=== PATIENT | female | born 1955 | race Caucasian/White ===

== ENCOUNTER 2016-12-25 03:24 | Emergency (ER) | payer OTHER ==
[~2016-12-25] VITALS: Ht 162.5 cm; Wt 59.0 kg
[~2016-12-25 03:24] MED LIST: LEXAPRO20 MG PO; PREMPRO 0.3 MG-1 TA1 PO; SYNTHROID,LEV100 MCG PO; TOPAMAX100 MG PO; VITAMIN D50000 I2 PO; WELLBUTRIN75 MG PO
[2016-12-25 03:52] LABS: BILIRUBIN 1+ (NEGATIVE); BLOOD 3+ (NEGATIVE); CLARITY CLOUDY (CLEAR); COLOR YELLOW (YELLOW); GLUCOSE NEGATIVE (NEGATIVE); KETONE NEGATIVE (NEGATIVE); LEUKO ESTERASE 2+ (NEGATIVE); NITRITE NEGATIVE (NEGATIVE); PH 6.5 (5.0-9.0); PROTEIN 2+ (NEGATIVE); UROBILINOGEN 0.2 E.U./dl (0.2-1.0)
[2016-12-25 03:59] LABS: BACTERIA 1+; URINE REFLEX COMMENT YES (NO); WBC TNTC wbc/hpf (0-5)
[2016-12-25] MEDS ORDERED: CEPHALEXIN500 M1 PO (04:06)
[2016-12-25] MEDS ORDERED: PYRIDIUM200 M1 PO (04:06)
== END 2016-12-25 05:04 | disposition home or self-care (01) ==
LOC: ED 03:24
PROVIDERS: Emergency Medicine
DX: N39.0 Urinary tract infection, site not specified (principal)

== ENCOUNTER 2017-02-01 12:40 | Emergency (ER) | payer OTHER ==
[~2017-02-01] VITALS: Wt 61.2 kg
[~2017-02-01 12:40] MED LIST changes: +CEPHALEXIN500 M1 PO; +PYRIDIUM200 M1 PO
[2017-02-01] MEDS ORDERED: LORAZEPAM1 MG PO (12:42)
[2017-02-01] MEDS ORDERED: SYNTHROID RP0.088 MG PO (12:42)
[2017-02-01] MEDS ORDERED: BUDEPRION XL150 MG PO (12:42)
[2017-02-01] MEDS ORDERED: B121000 MCG/1 IM (12:43)
[2017-02-01 13:06] LABS: BILIRUBIN 2+ (NEGATIVE); BLOOD 3+ (NEGATIVE); CLARITY TURBID (CLEAR); COLOR YELLOW (YELLOW); GLUCOSE NEGATIVE (NEGATIVE); KETONE TRACE (NEGATIVE); NITRITE POSITIVE (NEGATIVE); PROTEIN 3+ (NEGATIVE)
[2017-02-01 13:27] LABS: LEUKO ESTERASE 3+ (NEGATIVE); URINE REFLEX COMMENT YES (NO)
[2017-02-01 13:30] LABS: BACTERIA 2+; RBC TNTC rbc/hpf (0-2); WBC TNTC wbc/hpf (0-5)
[2017-02-01] MEDS ORDERED: MACROBID100 M1 PO (13:40)
[2017-02-01] MEDS ORDERED: PYRIDIUM200 M1 PO (13:40)
[2017-02-01] MEDS ORDERED: ZOFRAN4 MG PO (13:53)
== END 2017-02-01 14:00 | disposition home or self-care (01) ==
LOC: ED 12:40
PROVIDERS: Nurse Practitioner Family
DX: N39.0 Urinary tract infection, site not specified (principal); R03.0 Elevated blood-pressure reading, without diagnosis of hypertension; Z79.899 Other long term (current) drug therapy

== ENCOUNTER → 2021-07-27 | Outpatient (CLI) | payer MEDICARE ==
[~2021-07-27] MED LIST changes: +B121000 MCG/1 IM; +BUDEPRION XL150 MG PO; +LORAZEPAM1 MG PO; +MACROBID100 M1 PO; +SYNTHROID RP0.088 MG PO; +ZOFRAN4 MG PO
== END ==
LOC: RAD 17:08
PROVIDERS: ATTEND Nurse Practitioner Family
DX: J44.9 Chronic obstructive pulmonary disease, unspecified (principal); R51.9 Headache, unspecified; R53.83 Other fatigue